=== PATIENT | male | born 1960 | race Caucasian/White ===

== ENCOUNTER 2016-07-13 20:16 | Emergency (ER) | payer OTHER ==
[~2016-07-13] VITALS: Ht 185.4 cm; Wt 104.5 kg
[2016-07-13 20:24] VITALS: BP 143/84; PULSE 102; RESP 22; O2SAT 99
--- NOTE | 2016-07-13 21:03 | ED.REPORT ---
HPI-Back Pain 40 and Over Date of Service Jul 13, 2016 ED Provider: Chin Cain MD The patient is a 55 year old male who presents to the ED due to lower back pain (L5-S1) that started 3-4 weeks ago and has gotten progressively worse every day. His back seized up earlier today while getting up from the couch and exacerbated his symptoms. He is moaning and in distress at the ED. He has had 6 previous back surgeries, most recently November of 2015. This is the worst pain he 's ever had, rated 10/10. He takes 10mg Cyclobenzaprine daily and tried oxycodone earlier with no relief (leftover from surgery). He has not taken any Ibuprofen today. He confirms nausea, numbness down the right leg, with a normal left leg. He denies fever, diarrhea, and incontinence. He has high cholesterol and takes a statin. Dr. Olaf Triana is his surgeon. Nursing Notes Stated Complaint: BACK PAIN Chief Complaint: Back Pain or Injury Allergies: Coded Allergies: No Known Allergies (Unverified , 07/13/16) Scheduled Methylprednisolone (MethylprednisoLONE Dose Angel) 4 Mg Tab.ds.pk 4 MG PO UD Follow direction on package. Scheduled PRN Diazepam (Diazepam) 5 Mg Tablet 5 MG PO HS PRN PRN For Spasm Naproxen (Naproxen) 500 Mg Tab 500 MG PO BID PRN PRN For Pain General Time Seen by MD: 20:39 Chief Complaint Back pain Hx Obtained From: Patient Arrived By: Walk-in Sudden in Onset?: Yes Onset Occurred: More than a week ago... (4 weeks) Symptom Duration: Since onset Location: : Spinal lumbar area Quality: Painful Radiation: : Left leg below knee Severity: Current: Pain level 10 out of 10 Recent Healthcare: Previous surgery Similar Sx Previous: Yes Past Medical History Past Medical History high cholesterol Past Surgical History 6 back surgeries Smoking History Unknown if Ever Smoker Social History Other Social History: Good social support, Local resident Ambulatory Status Independent Review of Systems Constitutional: Denies: Fever GI: Reports: Nausea, Denies: Diarrhea Male: Denies Incontinence Musculoskeletal: Reports: Back pain Neurologic: Reports: Numbness Complete sys rev & neg: except as marked. Physical Exam Physical Exam Notes: Initial Vital Signs Vital Signs (First) Date Time Temp Pulse Resp B/P Pulse Ox O2 Delivery O2 Flow Rate FiO2 07/13/16 20:24 36.3 102 22 143/84 99 Room Air Initial VS: Reviewed General/Constitutional: Awake, Alert Distress / Hydration: Positive: Distress mild Respiratory / Chest: Atraumatic, Breath sounds NL, Breath sounds = bilat, No respiratory distress, No rales, No rhonchi, No wheezing Cardiovascular: Heart rate NL, Regular rhythm, Heart sounds NL, No gallop, No murmurs, No rubs Abdomen: Atraumatic, Soft, No pulsatile mass Flank / Spine / Paraspinal: Positive: Lumbar spine tender... midline surgical scar on lumbar spine Neurologic: Oriented X3, Speech NL R leg decreased strength as compared to L, seems to have considerable guarding. Reports R leg decreased light touch sensation. toes downgoing bilat Lower Extremity / Pelvis / MS: Non-tender, No erythema, Vascular intact Skin: Color NL, Warm, Dry Re-Eval/Medical Decision Med Decision/Clinical Course 55-year-old male with chronic back pain presents with an acute exacerbation of pain and no red flag findings. Improved with ketorolac IM and oxycodone. We will start a steroid taper provided 10 Percocet for home. We will also start him on naproxen. Patient reported diazepam helps him with sleep, cautioned him about combining diazepam oxycodone provided a prescription for 65 mg tablets to use at night only. Follow-up with his chronic pain physician as scheduled. Re-Evaluation/Progress : Re-Evaluation/Progress Note: Pt rechecked. Pain is still in a lot of pain. Plan for a shot of ketorlac. Counseled Regarding: Diagnosis, Lab results, Need for follow-up, When/why to return to ED Discharge & Departure Impression: Primary Impression: Low back pain Chronicity: acute Back pain laterality: right Sciatica presence: with sciatica Sciatica laterality: sciatica of right side Qualified Code: M54.41 - Lumbago with sciatica, right side Disposition: Home Discharge Condition All VS Reviewed: Yes Condition: Stable Additional Instructions: Emergency Department evaluation included interview and examination. I am going to start you on a tapering dose of steroids called a medrol dose pack. Start this tomorrow. Begin using an anti-inflammatory regularly, Ibuprofen or Naproxen. Diazepam 5mg at bedtime only. Only use the Valium at night for sleep. Follow up with primary care within the following week for continued pain management. Return to the Emergency Department for any new or worsening symptoms. I hope you feel better soon! Referrals: Olaf Triana MD Attestation Portion of this note were transcribed by Fadumo Bai. I, Dr. Cain, personally performed the history, physical exam, and medical decision-making: I reviewed and confirmed the accuracy for the information in the transcribed note. Signed by: aye Pack, 07/13/16 2300 copies to: Olaf Triana MD, Donald L MD Jul 13, 2016 21:03 Fadumo Bai Jul 13, 2016 21:10
[2016-07-13] MEDS ORDERED: oxyCODONE-Acetamin 5-325 mg Tablet PO ONE (21:15)
[2016-07-13] MEDS ORDERED: Ketorolac 30 mg/mL 2 mL Inj IM ONE (21:15)
[2016-07-13] MEDS ORDERED: METH4TAB11 PO (22:13)
[2016-07-13] MEDS ORDERED: DIAZ5TAB3 PO (22:14)
[2016-07-13] MEDS ORDERED: NPR500T PO (22:14)
[2016-07-13] MEDS ORDERED: _oxyCODONE/APAP 5-325 mg Tablet PO PRN (22:35)
[2016-07-13 22:51] VITALS: BP 112/69; PULSE 91; RESP 17; O2SAT 95
== END 2016-07-13 22:57 | disposition home or self-care (01) ==
LOC: SED 20:16
DX: M54.41 Lumbago with sciatica, right side (principal); Z98.890 Other specified postprocedural states
CPT/HCPCS: 96372; 99283; J1885